=== PATIENT | female | born 1990 | race Asian ===

== ENCOUNTER 2023-12-04 15:55 | Outpatient (CLI) | payer MEDICAID | END 2023-12-04 23:59 | disposition home or self-care (01) | LOC: RAD 15:55 | PROVIDERS: ATTEND Obstetrics & Gynecology | DX: O09.92 Supervision of high risk pregnancy, unspecified, second trimester (principal); Z3A.15 15 weeks gestation of pregnancy | CPT/HCPCS: 76805 ==